=== PATIENT | female | born 1990 | race Caucasian/White ===

== ENCOUNTER 2018-05-07 15:01 | Emergency (ER) | payer OTHER ==
[2018-05-07] MEDS: KETOROLAC 30 MG/ML VIAL (J1885) IV (17:15)
[2018-05-07 17:23] LABS: HEMOGLOBIN 12.4 g/dl (12.0-15.5); MEAN CORPUSCULAR HEMOGLOBIN 32.1 pg (27.0-33.0); MEAN CORPUSCULAR HGB CONC 33.5 g/dl (32.0-36.5); MEAN CORPUSCULAR VOLUME 95.9 fl (80.0-96.0); PLATELET COUNT, AUTOMATED 148 10^3/uL (150-450); RED BLOOD COUNT 3.86 10^6/uL (4.00-5.40); RED CELL DISTRIBUTION WIDTH 12.9 % (11.5-14.5); WHITE BLOOD COUNT 6.6 10^3/uL (4.0-10.0)
[2018-05-07 17:47] LABS: ADD MANUAL DIFFER YES; DIFF SLIDE NUMBER 326; POSITIVE DIFF POS FLAG
[2018-05-07 17:49] LABS: CONTROL LINE MONO INT CTR LINE PRESENT; MONO SCRN NEGATIVE (NEGATIVE)
[2018-05-07 17:53] LABS: BANDS 20 % (< 11); LYMPHOCYTES 4 % (16-52); MONOCYTES 2 % (0-8); NEUTROPHILS 74 % (35-75)
[2018-05-07 17:55] LABS: ALBUMIN 3.9 GM/DL (3.2-5.2); ALKALINE PHOSPHATASE 67 U/L (45-117); ALT/SGPT 36 U/L (12-78); ANION GAP 6 MEQ/L (8-16); AST/SGOT 24 U/L (7-37); BILIRUBIN,DIRECT 0.2 MG/DL (0.0-0.2); BILIRUBIN,TOTAL 0.8 MG/DL (0.2-1.0); BLOOD UREA NITROGEN 22 MG/DL (7-18); C REACTIVE PROTEIN QUANTITATIV 7.59 MG/DL (0.00-0.30); CALCIUM LEVEL 8.4 MG/DL (8.5-10.1); CARBON DIOXIDE LEVEL 28 MEQ/L (21-32); CHLORIDE LEVEL 103 MEQ/L (98-107); CREATININE FOR GFR 0.75 MG/DL (0.55-1.30); GLOMERULAR FILTRATION RATE > 60.0 (>60); GLUCOSE, FASTING 104 MG/DL (70-100); PLATELET ESTIMATE DECREASED (NORMAL); POTASSIUM SERUM 3.7 MEQ/L (3.5-5.1); SODIUM LEVEL 137 MEQ/L (136-145); TOTAL PROTEIN 6.9 GM/DL (6.4-8.2)
[2018-05-07] MEDS ORDERED: ACETAMINOPHEN 325 MG TAB As Ordered (19:15)
[2018-05-07] MEDS: AZITHROMYCIN 250 MG TAB PO (19:28)
[2018-05-07] MEDS: ACETAMINOPHEN 325 MG TAB PO (19:28)
== END 2018-05-07 19:29 | disposition home or self-care (01) ==
LOC: M ED 15:01
DX: J01.90 Acute sinusitis, unspecified (principal); E86.0 Dehydration; R53.83 Other fatigue; Z88.0 Allergy status to penicillin; Z88.1 Allergy status to other antibiotic agents
CPT/HCPCS: J1885

== ENCOUNTER → 2018-05-13 | Outpatient (CLI) | payer OTHER ==
[2018-05-13 18:33] LABS: COMPLEMENT C3 92.9 MG/DL (90-180); COMPLEMENT C4 21.5 MG/DL (10-40); TOTAL PROTEIN 7.2 GM/DL (6.4-8.2)
[2018-05-13 18:34] LABS: URINE TOTAL PROTEIN < 5.0 MG/DL (0-12)
[2018-05-14 12:53] LABS: ALBUMIN 4.63 GM/DL (3.29-5.55); ALBUMIN % 64.3 % (55.8-66.1); ALPHA-1-GLOBULIN % 4.5 % (2.9-4.9); ALPHA-1-GLOBULINS 0.32 GM/DL (0.17-0.41); ALPHA-2-GLOBULINS 0.67 GM/DL (0.42-0.99); ALPHA-2-GLOBULINS % 9.3 % (7.1-11.8); BETA-1-GLOBULINS % 6.9 % (4.7-7.2); BETA-2-GLOBULINS 0.27 GM/DL (0.19-0.55); BETA-2-GLOBULINS % 3.7 % (3.2-6.5); GAMMA GLOBULIN % 11.3 % (11.1-18.8); GAMMA GLOBULINS 0.81 GM/DL (0.65-1.58)
[2018-05-14 14:26] LABS: UPEP INTERPRETATION NO M-SPIKE NOTED; URINE VOLUME RANDOM ML
[2018-05-15 10:50] LABS: HEPATITIS B SURFACE ANTIBODY POSITIVE (POSITIVE)
[2018-05-15 11:29] LABS: HEPATITIS B CORE ANTIBODY IGM NEGATIVE (NEGATIVE)
[2018-05-15 11:31] LABS: HEPATITIS B SURFACE ANTIGEN NEGATIVE (NEGATIVE)
[2018-05-15 13:44] LABS: HEPATITIS C VIRUS ABY INDEX 0.1 INDEX (<0.8)
[2018-05-20 00:07] LABS: ANCA-ATYPICAL <1:20 titer (Neg:<1:20); ANTI DOUBLE STRAND-DNA AB 1 IU/mL (0-9); ANTINUCLEAR ANTIBODIES DIRECT Negative (Negative); CYTOPLASMIC NEUTROP AB ANCA-C <1:20 titer (Neg:<1:20); Lyme Disease IgG Ab 18 kDa Ban Absent (.); Lyme Disease IgG Ab 23 kDa Ban Absent (.); Lyme Disease IgG Ab 28 kDa Ban Absent (.); Lyme Disease IgG Ab 30 kDa Ban Absent (.); Lyme Disease IgG Ab 39 kDa Ban Absent (.); Lyme Disease IgG Ab 41 kDa Ban Present (.); Lyme Disease IgG Ab 45 kDa Ban Absent (.); Lyme Disease IgG Ab 58 kDa Ban Absent (.); Lyme Disease IgG Ab 66 kDa Ban Absent (.); Lyme Disease IgG Ab 93 kDa Ban Absent (.); Lyme Disease IgG West Blot Int Negative (.); Lyme Disease IgG/IgM Antibodie <0.91 ISR (0.00-0.90); Lyme Disease IgM Ab 23 kDa Ban Absent (.); Lyme Disease IgM Ab 39 kDa Ban Absent (.); Lyme Disease IgM Ab 41 kDa Ban Absent (.); Lyme Disease IgM Ab Quantitati 0.95 index (0.00-0.79); Lyme Disease IgM West Blot Int Negative (.); PERINUCLEAR AB ANCA-P <1:20 titer (Neg:<1:20)
== END ==
LOC: M SMT 13:16
DX: R80.9 Proteinuria, unspecified (principal)
CPT/HCPCS: 84165

== ENCOUNTER → 2018-05-14 | Outpatient (REF) | payer OTHER | LOC: M LAB REF 11:21 | DX: R80.9 Proteinuria, unspecified (principal) ==

== ENCOUNTER → 2018-05-15 | Outpatient (REF) | payer OTHER ==
[2018-05-15 13:36] LABS: TOTAL VOLUME, URINE 1650 ML
[2018-05-15 14:26] LABS: CREATININE 24 HOUR, URINE 994.9 MG/24HR (600-1800); CREATININE, URINE 60.3 MG/DL; TOTAL PROTEIN 24 HOUR URINE 120.4 MG/24HR (50-150); URINE TOTAL PROTEIN 7.3 MG/DL (0-12)
== END ==
LOC: M LAB REF 12:59
DX: R80.9 Proteinuria, unspecified (principal)

== ENCOUNTER → 2018-06-16 | Outpatient (REF) | payer OTHER ==
[2018-06-16 13:57] LABS: FERRITIN 7 NG/ML (8-252); IRON (FE) 49 UG/DL (50-170); PERCENT SATURATION 12.6 % (13.2-45.0); TOTAL IRON BINDING CAPACITY 388 UG/DL (250-450)
[2018-06-16 14:13] LABS: VITAMIN B12 LEVEL 686 PG/ML
[2018-06-16 14:14] LABS: FOLATE 16.9 NG/ML
== END ==
LOC: M LAB REF 13:11
DX: D64.9 Anemia, unspecified (principal)

== ENCOUNTER 2019-03-14 06:36 | Emergency (ER) | payer OTHER ==
[~2019-03-14] VITALS: Ht 170.2 cm; Wt 62.7 kg
[~2019-03-14 06:36] MED LIST: ZITHTAB PO; ZOFR4TAB14 PO
[2019-03-14] MEDS ORDERED: LEVO50TA5 (06:41)
[2019-03-14 07:51] LABS: BASO % 0.3 % (0.0-1.0); EOS # 0.1 10^3/uL (0.0-0.50); EOS % 0.9 % (0.0-3.0); HEMATOCRIT 35.9 % (36.0-47.0); HEMOGLOBIN 12.9 g/dl (12.0-15.5); LYMPH # 0.9 10^3/uL (1.5-6.5); LYMPH % 12.6 % (24.0-44.0); MEAN CORPUSCULAR HEMOGLOBIN 34.4 pg (27.0-33.0); MEAN CORPUSCULAR HGB CONC 35.9 g/dl (32.0-36.5); MEAN CORPUSCULAR VOLUME 95.7 fl (80.0-96.0); MONO # 0.5 10^3/uL (0.0-0.8); MONO % 6.7 % (0.0-5.0); NEUTROPHILS # 5.6 10^3/uL (1.8-7.7); NEUTROPHILS % 79.1 % (36.0-66.0); PLATELET COUNT, AUTOMATED 152 10^3/uL (150-450); RED BLOOD COUNT 3.75 10^6/uL (4.00-5.40); WHITE BLOOD COUNT 7.1 10^3/uL (4.0-10.0)
[2019-03-14 08:35] LABS: BLOOD UREA NITROGEN 12 MG/DL (7-18); CALCIUM LEVEL 8.1 MG/DL (8.5-10.1); CARBON DIOXIDE LEVEL 25 MEQ/L (21-32); CHLORIDE LEVEL 107 MEQ/L (98-107); CREATININE FOR GFR 0.53 MG/DL (0.55-1.30); GLOMERULAR FILTRATION RATE > 60.0 (>60); GLUCOSE, FASTING 87 MG/DL (70-100); POTASSIUM SERUM 3.9 MEQ/L (3.5-5.1); SODIUM LEVEL 140 MEQ/L (136-145)
[2019-03-14] MEDS ORDERED: NS 1,000 ML IV ONE (09:00)
[2019-03-14 11:31] VITALS: BP 93/56
== END 2019-03-14 11:30 | disposition home or self-care (01) ==
LOC: M ED 06:36
DX: O99.89 Other specified diseases and conditions complicating pregnancy, childbirth and the puerperium (principal); R10.2 Pelvic and perineal pain; R11.2 Nausea with vomiting, unspecified; D64.9 Anemia, unspecified; O99.282 Endocrine, nutritional and metabolic diseases complicating pregnancy, second trimester; Z79.899 Other long term (current) drug therapy; Z88.0 Allergy status to penicillin

== ENCOUNTER 2019-06-14 20:15 | Outpatient (CLI) | payer OTHER ==
[~2019-06-14] VITALS: Ht 170.2 cm; Wt 71.4 kg
[~2019-06-14 20:15] MED LIST changes: +LEVO50TA5
== END 2019-06-14 21:10 | disposition home or self-care (01) ==
LOC: M LDO 20:15
PROVIDERS: ATTEND Obstetrics & Gynecology
DX: O36.8130 Decreased fetal movements, third trimester, not applicable or unspecified (principal); O21.2 Late vomiting of pregnancy; Z3A.29 29 weeks gestation of pregnancy
CPT/HCPCS: 59025; G0378; G0463